=== PATIENT | male | born 1975 | race Two or more races ===

== ENCOUNTER 2025-03-08 08:35 | Day surgery (SDC) | payer OTHER, SELFPAY ==
[2025-03-06 09:04] VITALS: BMI 28.1
--- NOTE | 2025-03-07 07:00 | EKG_ITS ---
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
[2025-03-07 11:01] LABS: Basophils # (Auto) 0.0 Thou/mm3 (0.0-0.2); Basophils % (Auto) 0 % (0-2.5); Eosinophils # (Auto) 0.1 Thou/mm3 (0.0-0.5); Eosinophils % (Auto) 2 % (0-10); Hematocrit 46.0 % (41.0-53.0); Hemoglobin 15.7 g/dL (13.5-16.0); Immature Granulocytes Auto 0.03 Thou/mm3 (0.00-0.00); Lymphocytes # (Auto) 2.1 Thou/mm3 (1.0-4.8); Lymphocytes % (Auto) 28 % (10-50); Mean Corpuscular HGB Conc 34.1 g/dl (31.0-37.0); Mean Corpuscular Hemoglobin 31.5 pg (25.0-35.0); Mean Corpuscular Volume 92 fL (80-100); Monocytes # (Auto) 0.5 Thou/mm3 (0.0-0.8); Monocytes % (Auto) 7 % (0-12); Neutrophils # (Auto) 4.6 Thou/mm3 (1.8-7.7); Neutrophils % (Auto) 63 % (37-80); Nucleated Red Blood Cell # 0.00 Thou/mm3 (0.00-0.00); Nucleated Red Blood Cell % 0 /100 WBC (0); Platelet Count 208 Thou/mm3 (140-440); RDW Standard Deviation 42.1 fL (35.1-43.9); Red Blood Count 4.99 Miln/mm3 (4.50-5.90); White Blood Count 7.4 Thou/mm3 (3.8-10.6)
[2025-03-07 11:14] LABS: Anion Gap 11 (7-16); BUN/Creatinine Ratio 21 Ratio (12-20); Blood Urea Nitrogen 17 mg/dL (9-23); Calcium 10.1 mg/dL (8.3-10.6); Carbon Dioxide 24.2 mMol/L (20.0-31.0); Chloride 107 mMol/L (98-107); Creatinine (Component) 0.8 mg/dL (0.6-1.3); Estimated Creatinine Clearance 114.0 mL/min (>60); Glucose 104 mg/dL (74-106); Osmolality,Calculated 284 (275-295); Potassium 3.9 mMol/L (3.4-5.1); Sodium 142 mMol/L (136-145); eGFR > 60 See Note
[2025-03-07 11:17] LABS: INR 1.1 (0.9-1.3); Partial Thromboplastin Time 28.5 Seconds (22.0-36.0); Prothrombin Time 11.9 Seconds (9.0-12.2)
[2025-03-08] VITALS (14 sets, daily range): BP systolic 108–133; BP diastolic 67–86; PULSE 70–86; RESP 13–22; TEMP 36.1–37.1; O2SAT 93–98; BMI 27.6
--- NOTE | 2025-03-08 12:12 | PD.CARDCATH ---
Cardiac Cath Procedure Procedure Name Date of procedure: 03/08/25 EMERGENCY MEDICINE PHYSICIAN: Brian Chen MD PROCEDURE PERFORMED: 1. Left heart cardiac catheterization- Left and right coronary angiograms with LVEDP measurement and left ventriculogram 2. Ultrasound-guided access of the right radial artery 3. Conscious sedation for 30 minutes.. 4. Intravascular ultrasound performed for left main artery. Procedure Narrative HISTORY AND INDICATIONS: Mitch Thornton is a 50-year-old male with PMH HTN, DM2, HLD, Obesity, Palpitation. Patient came to the office complaining of exertional central chest pain moderate to severe in intensity, lasting for few seconds and relieved by rest. Patient had ischemic cardiac work up and NST showed abnormal NST, it showed mild decreased uptake in the apical segment of the eft ventricle with stress and improves with rest indicating ischemia.Patient was explained the risk benefits and alternatives of performing a left heart cardiac catheterization including the risk of bleeding, heart attack, stroke and in detail and the agreeable for the procedure. Consent signed, placed in the chart and H&P updated. DESCRIPTION OF PROCEDURE: The patient was brought to the cardiac catheterization lab and all asceptic precautions were followed. Patient was given 1 Mg of Versed and 50 mcg of fentanyl for moderate conscious sedation. 2 mL of lidocaine was given in the right wrist. The right radial artery was accessed via the ultrasound guidance as well as micropuncture technique. A 6 Iranian glide sheath was introduced. We then used a 5 Iranian TIG 4 catheter to perform the left and right coronary angiograms as well as a left ventriculogram which showed the following findings. 1. Left ventricular ejection fraction was normal at 55 to 60% without any regional wall motion abnormalities. LVEDP was normal at 9 mmHg. There was no significant transvalvular aortic gradient. 2. Right dominant circulation 3. Left main artery is a large-caliber vessel with 70% stenosis of ostial to mid segment, gives rise to LAD, LCX and without any significant disease. 4. LAD is a large sized artery with 10-20% stenosis of mid segment, gives rise to a medium size diagonal and without show any significant disease. 5. LCx is a large sized artery with 10-20% stenosis of mid segment, gives rise to a medium OM1 and small OM2 with mild disease. 6. RCA is a large artery with 10-20% stenosis of proximal segment, gives rise to a medium RPDA with 10-20% stenosis and RPL without any significant disease. 7. Given severe Left main stenosis, intracoronary nitro was given to rule out coronary vasospasm, IVUS was performed and it showed MLA or minimal luminal area was around 5 mm square. A radial band was used to achieve the hemostasis of the right radial artery access. Patient will be monitored in the cardiac fly frame tender for the next 2 to 3 hours and will be discharged home / telemetry later today if hemodynamically stable. Complications: None Specimens: None Blood loss: Estimated 5-10 ml Summary/findings: 1. Abnormal Stress test: LHC showed severe CAD with 70% stenosis of ostial to mid segment of Left main, 10-20% stenosis of mid LAD, 10-20% stenosis of proximal RCA and RPDA, 70% stenosis of ostial to mid LCx, Rest of coronary branches with only minimal luminal irregularities and no angiographically significant obstruction. 2. LVEF normal at 55-60% and LVEDP normal at 10 mmHg. No significant transvalvular aortic gradient. 3. Given severe Left main stenosis, intracoronary nitro was given to rule out coronary vasospasm, IVUS was performed and it showed MLA or minimal luminal area was around 5 mm square. Recommendations: 1. Patient was recommended CABG open heart surgery. Recommend aggressive medical treatment and aggressive risk factor modification. 2. Recommended no lifting more than 5 pounds for next 7-10 days and follow up in my office in 7 days. Brian Chen MD Interventional Cardiology.
[2025-03-08] MEDS: SODIUM CHLORIDE 0.45 % 500 ML 150 ML IV (14:05)
--- NOTE | 2025-03-08 17:32 | PC.NURSE ---
1545 patient is awake, alert, breathing unlabored, s/p LHC by Dr. Chen, TR band present to right wrist, no bleeding or hematoma noted. Report received from Vida GOINS, patient to recover for 3 hours, and follow up in office tomorrow or wednesday. 1600 2ml air removed form TR band since hemostasis tiome 1357. 1630 TR band removed, no bleeding or hematoma noted, site covered with tegaderm and coban. 1730 patient is awake, alert, breathing unlabored, able to tolerate food tray with no nausea or vomiting , able to void via urinal, dressing to right wrist remains clean, dry and intact with no hematoma, patient meets discharge criteria, discharge instructions given by Darling GOINS with abdi intepreter Jean-Paul [id number]. patient and verbalize understanding of discharge instructions. Patient discharged home in wheelchair with all belongings.
[2025-03-09 09:16] LABS: ACT (CATH LAB ONLY) > 400.0 Seconds (89-169)
== END 2025-03-08 17:30 | disposition home or self-care (01) ==
PROVIDERS: PCP Internal Medicine; Referring Provider Internal Medicine Cardiovascular Disease; Visit Provider Internal Medicine Cardiovascular Disease
PROC: (CPT 93458; principal; 2025-03-08 11:30)
DX: I25.10 Atherosclerotic heart disease of native coronary artery without angina pectoris (principal); E11.9 Type 2 diabetes mellitus without complications; E78.5 Hyperlipidemia, unspecified; I10 Essential (primary) hypertension; E66.9 Obesity, unspecified; Z01.810 Encounter for preprocedural cardiovascular examination; R94.39 Abnormal result of other cardiovascular function study; E66.811 Obesity, class 1; Z79.84 Long term (current) use of oral hypoglycemic drugs; Z79.899 Other long term (current) drug therapy; Z68.27 Body mass index [BMI] 27.0-27.9, adult
CPT/HCPCS: 93458; 92978; 36415; 80048; 85025; 85347; 85610; 85730; 93005; 99152; 99153; A4649; C1753; C1769; C1887; C1894; J0461; J1643; J2250; J2312; J2371; J3010; J3490; J7030; Q9967; J2305

== ENCOUNTER 2025-06-18 22:16 | Emergency (ER) | payer OTHER, SELFPAY ==
[2025-06-18 22:36] VITALS: BP 113/75; PULSE 90; RESP 18; TEMP 36.7; O2SAT 98
--- NOTE | 2025-06-18 22:49 | EDNOTE_ITS ---
ED Skin Abcess FB-RME/HPI General Chief complaint: Skin/Abscess/Foreign Body Stated complaint: RASH TO WHOLE BODY Time Seen by Provider: 06/18/25 22:21 Arrival date/time: 06/18/25 22:16 RME / HPI RME / HPI narrative: 50-year-old male with past medical history of hypertension, high cholesterol, diabetes, low blood pressure who had a stent placed about a month ago presents to the ER complaining of an itchy rash to his entire body which started 2 days ago and he went to bed around 7 PM but woke up an hour ago with a lower swollen lip and the rash has continued to worsen. Patient states he had his benazepril discontinued because his blood pressure was low and has not been taking it for 1 month however he did start clopidogrel as well as aspirin but he has been compliant with these for 30 days. Denies any new medication aside from what is noted. Denies any history of anaphylaxis, shortness of breath, vomiting, tongue swelling, sore throat. Related Data Home Medications ?Medication ?Instructions ?Recorded ?Confirmed aspirin 81 mg tablet 81 mg PO QDAY 03/08/2503/08 atorvastatin 10 mg tablet 10 mg PO QDAY 03/08/2503/08 dapagliflozin propanediol 10 mg 10 mg PO QDAY 03/08/25 03/08/25 tablet (Farxiga) glipizide 5 mg-metformin 500 mg 1 tab PO QDAY 03/08/25 03/08/25 tablet Held on 03/08/25. Instructions: Resume on 03/11/25. CONTINUE Wednesday03/11/25 semaglutide 0.25 mg or 0.5 mg (2 0.25 mg subcut QWEEK 03/08/25 03/08/25 mg/3 mL) subcutaneous pen injector (Ozempic) Previous Rx's ?Medication ?Instructions ?Recorded epinephrine 0.3 mg/0.3 mL 0.3 ml subcut Q5MIN PRN 06/04 12/27 injection, auto-injector (EpiPen hypersensitivity reac tion #2 ea 2-Ashkan) prednisone 20 mg tablet 40 mg (2 x 20 mg) PO QDAY #1 0 tabs 06/19/25 Allergies Allergy/AdvReac Type Severity Reaction Status Date / Time No Known Allergies Allergy Verified 03/08/25 16:52 ED Exam Narrative Physical exam: Constitutional: Patient alert and oriented. Well appearing. No acute distress. Not toxic appearing. Head: Normocephalic, atraumatic. Eyes: Periorbital regions bilaterally normal to inspection. Conjunctiva clear bilaterally. Sclera anicteric bilaterally. Pupils equal, round, reactive to light bilaterally. Extraocular movements intact bilaterally. Ears: External ears normal to inspection bilaterally. No mastoid tenderness bilaterally. EAC without edema or exudate bilaterally. TMs without erythema or bulging. Mouth/Throat: Positive edema of lower lip. Upper lip without edema. Tongue without edema. Mucous membranes moist. No stridor or muffled voice. Uvula midline. Rise and fall of soft palate normal. No tonsillar or oropharyngeal edema or exudate. No peritonsillar fullness. No trismus. Handling secretions without difficulty. Airway widely patent. Neck: Supple. Trachea midline. No JVD. No nuchal rigidity. No midline tenderness or step-offs. Normal range of motion. Respiratory: Normal effort. No accessory muscle use or respiratory distress. Lungs clear to auscultation bilaterally without rhonchi, wheezes, or crackles. Cardiovascular: RRR. Normal S1/S2. No murmurs or rubs. Radial pulses intact bilaterally. Abdomen: Soft. Non-distended. Non-tender throughout. No pulsatile mass. No guarding or rebound. Negative Coronel?s sign. Negative McBurney?s point tenderness. Negative Rovsing?s. Back: No midline tenderness or step-offs. No CVA tenderness to palpation bilaterally. Upper Extremities: No gross deformities. Lower Extremities: No gross deformities. No edema or calf tenderness. Neuro: Speech normal. No gross motor or sensory deficits to upper or lower extremities bilaterally. GCS 15. CN II?XII grossly intact. Skin: Warm, dry, normal color. Positive geographic erythematous urticarial lesions which are blanching noted throughout body. Psych: Normal affect. Cooperative. Normal insight. Course Quality Measures none Orders Category Date Time Status Dirt Supervisor Q4H START 00 Care 06/18/25 23:10 Completed DiphenhydrAMINE [Benadryl] Med 06/18/25 22:49 Discontinued 50 mg PO X1 ONE Famotidine [Pepcid] Med 06/18/25 22:49 Discontinued 40 mg PO X1 ONE predniSONE Med 06/18/25 22:49 Discontinued 60 mg PO X1 ONE Reevaluation(s) Reevaluation #1: Patient notes improvement of his symptoms as well as remaining without any additional angioedema. Patient denies any additional swelling or worsening rash. Remains in no respiratory distress. Rash appears improved as well as edema of his lower lip. Time: 12:30 Reevaluation #2: Patient states he has been keeping a BP log at home and his blood pressure has been as low as in the 90s systolic since his surgery for his heart as his doctor told him to keep a BP log, advised to follow-up with his obstetrics and gynecology professor for this as he may need further testing such as an echocardiogram and patient aware of this. Denies any chest pain, shortness of breath or dizziness and states that his rash as well as the swelling of his left has essentially resolved. Patient requesting discharge home. Patient's airway remains widely patent and lungs remain clear without wheezing. Lips and tongue and oropharynx are absent of any angioedema. Rash has nearly completely resolved. At the time of reassessment prior to discharge, the patient remains alert and oriented ?3 with GCS 15. Vitals are normal, pain is controlled, and the patient is tolerating oral intake without nausea or vomiting. The patient is agreeable to discharge and verbalizes understanding of the diagnosis, studies, treatment plan, medications (including side effects/precautions), and strict ER return precautions as discussed in the ED. All concerns were addressed, and the patient is comfortable with the plan. Time: 02:39 Vital Signs Vital signs: Vital Signs Temperature 98.1 F 06/18/25 22:36 Pulse Rate 90 06/18/25 22:36 Respiratory Rate 18 06/18/25 22:36 Blood Pressure 113/75 06/18/25 22:36 Pulse Oximetry (%) 98 06/18/25 22:36 Oxygen Delivery Method Room Air 06/18/25 22:36 As noted Skin / Abscess / Foreign Body MDM Narrative MDM Narrative:: MDM This patient had an allergic reaction. The patient is now clinically stable and has been observed for an appropriate period without clinical deterioration. The patient is felt to be at very low risk for airway compromise or anaphylactic deterioration. I considered admission, but given above, that is not indicated at this time. The patient has been instructed to return immediately if any unant icipated change in status occurs. Patient data External records reviewed:: [facility] previous records Clinical information provided by:: patient Social determinants that could affect healthcare access:: none Patient has the following chronic illnesses:: As noted How is presenting disease/condition affected by chronic disease/condition?: uneffected by Evaluation data The following diagnostics were reviewed and interpreted by me:: other (specify) Lab and/or radiology exams considered but not ordered:: Additional Labs and radiology considered, but not ordered as they were not clinically indicated at this time. Interpretation Summary: None Medications / Prescriptions Medications or Prescriptions considered but not ordered:: I ordered medications based on the patient?s clinical needs and assessment, as documented in the chart. For medications not prescribed, they were not indicated for the patient's current condition, and I determined they were unnecessary at this time to avoid potential risks or complications. Medication administrations:: Medication Administration History Discontinued Medications Diphenhydramine HCl (Diphenhydramine Elix 25 Mg/10 Ml Udc) 50 mg PO X1 ONE Stop: 06/18/25 22:50 Last Admin: 06/18/25 23:11 Dose: 50 mg Documented By: WALLY Famotidine (Famotidine 20 Mg Tablet) 40 mg PO X1 ONE Stop: 06/18/25 22:50 Last Admin: 06/18/25 23:10 Dose: 40 mg Documented By: WALLY Prednisone (Prednisone 20 Mg Tablet) 60 mg PO X1 ONE Stop: 06/18/25 22:50 Last Admin: 06/18/25 23:10 Dose: 60 mg Documented By: WALLY None Consultations Consultation(s) initiated? (list below): No Diagnosis Skin/Abscess Differential Diagnosis: urticaria, allergic reaction to drug and contact dermatitis Most likely diagnosis given after review of the tests above:: Urticaria with angioedema concerning for allergic reaction Admission Indicated Admission indicated?: not indicated Admission Request Was there a request for admission?: No Disposition Plan Disposition Plan: Discharge Discharge Attestation Discharge Attestation: The patient and all family members were given an opportunity to ask questions and understood the discharge instructions. Discharge instructions specifically effects, indications for sooner follow up or return to the emergency department, and the expected course of current diagnosis. Patient condition: Stable Discharge Plan Plan Patient Disposition: HOME (Self Care) Patient condition on transfer: Stable Prescriptions/Referrals Prescriptions/Med Rec: New prednisone 20 mg tablet 40 mg PO QDAY Qty: 10 0RF epinephrine [EpiPen 2-Ashkan] 0.3 mg/0.3 mL auto-injector 0.3 ml subcut Q5MIN PRN (Reason: hypersensitivity reaction) Qty: 2 0RF Rx Instructions: 0.3 mL subcutaneously at first signs of anaphylaxis, may repeat once Q5 minutes prn, pharmacist to train No Action dapagliflozin propanediol [Farxiga] 10 mg tablet 10 mg PO QDAY atorvastatin 10 mg tablet 10 mg PO QDAY aspirin 81 mg tablet 81 mg PO QDAY glipizide-metformin 5-500 mg tablet 1 tab PO QDAY Ozempic 0.25 mg or 0.5 mg (2 mg/3 mL) pen injector 0.25 mg subcut QWEEK Rx Instructions: for 4 weeks Referrals: Nery Brown MD [Primary Care Provider, Nephrology] - In 1 week Problem List Clinical Impression: [id number] Patient/Caregiver Discharge Instructions Education Materials: ED Angioedema Additional Instructions: Follow up with your primary medical doctor within 24 hours. Return to the Emergency Room immediately for any new, worsening, continuing symptoms or any concerns at all. Return to the Emergency Room within 24 hours if you are unable to follow up with your primary medical doctor within 24 hours. Take Benadryl 50 mg every [address] with this or operate heavy machinery as it would make you drowsy. Additionally take Pepcid 20 mg twice daily. Take remainder of medication as prescribed. Print Language: Tamazight Stand Alone Forms: Sakshi Award Info., Patient Portal Info Letter PA/SAGGER FILLER Supervising Physician PA/SAGGER FILLER Supervising Physician: Dr. Thomas
[2025-06-18] MEDS: FAMOTIDINE 20 MG TABLET 40 MG PO (23:10)
[2025-06-18] MEDS: DiphenhydrAMINE ELIX 25 MG/10 ML UDC 50 MG PO (23:11)
[2025-06-18 23:57] VITALS: BP 101/63; PULSE 85; RESP 18; TEMP 36.7; O2SAT 95
[2025-06-19 00:57] VITALS: BP 106/66; PULSE 85; RESP 17; O2SAT 95
[2025-06-19 02:49] VITALS: BP 100/64; PULSE 95; RESP 18; TEMP 36.6; O2SAT 96
== END 2025-06-19 03:02 | disposition home or self-care (01) ==
PROVIDERS: Emergency Provider Emergency Medicine; PCP Internal Medicine
DX: T78.3XXA Angioneurotic edema, initial encounter (principal)
CPT/HCPCS: 99283; J7512; A9270